=== PATIENT | female | born 1945 | race American Indian/Alaskan Native ===

== ENCOUNTER 2017-10-20 13:26 | Outpatient (CLI) | payer MEDICARE, OTHER ==
--- NOTE | 2017-10-20 23:15 | XRay Report ---
FINAL REPORT EXAM: XR SPINE LUMBOSACRAL 2-3V HISTORY: LOWER PAIN SPINE TECHNIQUE: Lumbar spine three views PRIORS: FINDINGS: There is degenerative disc space narrowing throughout the lumbar spine from T12-L1 through L3-L4. At L4-5 there is grade 1 anterolisthesis of L4 relative to L5. Facet joint arthropathy is present from L3-L4 through L5-S1. No acute fracture identified. The vertebral bodies are normal in height. Noted is an IVC filter. There is partially seen right hip prosthesis. There is some mild narrowing of the SI joints. IMPRESSION: Multilevel degenerative disc disease Grade 1 spondylolisthesis at L4-5 Hypertrophic facet joint arthropathy lower lumbar spine Degenerative changes at the SI joints
== END 2017-10-20 13:27 | disposition home or self-care (01) ==
LOC: SPVIMAG 13:26
PROVIDERS: ATTEND Orthopaedic Surgery Sports Medicine
DX: M51.36 Other intervertebral disc degeneration, lumbar region (principal); M43.16 Spondylolisthesis, lumbar region; M12.88 Other specific arthropathies, not elsewhere classified, other specified site
CPT/HCPCS: 72100